=== PATIENT | male | born 1970 | race Caucasian/White ===

== ENCOUNTER → 2024-05-23 | Day surgery (SDC) | payer OTHER | LOC: CT 05-22 08:00 | DX: I25.10 Atherosclerotic heart disease of native coronary artery without angina pectoris (principal); I10 Essential (primary) hypertension; E78.5 Hyperlipidemia, unspecified; G47.33 Obstructive sleep apnea (adult) (pediatric); Z82.49 Family history of ischemic heart disease and other diseases of the circulatory system | CPT/HCPCS: 75574; Q9967 ==